=== PATIENT | male | born 1955 | race Caucasian/White ===

== ENCOUNTER 2021-07-05 18:35 | Emergency (ER) | payer SELFPAY ==
[~2021-07-05] VITALS: Ht 175.3 cm; Wt 82.0 kg
[2021-07-05 20:31] VITALS: BP 159/78
== END 2021-07-05 20:42 | disposition home or self-care (01) ==
LOC: ER 18:35
DX: R42 Dizziness and giddiness (principal); I10 Essential (primary) hypertension; Z86.73 Personal history of transient ischemic attack (TIA), and cerebral infarction without residual deficits
CPT/HCPCS: 71045; 99283